=== PATIENT | female | born 1940 | race Caucasian/White ===

== ENCOUNTER 2020-06-29 19:40 | Emergency (ER) | payer MEDICARE, BC ==
[~2020-06-29] VITALS: Ht 165.1 cm; Wt 58.9 kg
--- NOTE | 2020-06-29 21:21 | RAD ---
CT Head W/O Contrast: History: Reason: FALL, HIT RIGHT CHEEK BONE / Spl. Instructions: / History: Comparison: none Axial images were obtained without contrast. There is moderate diffuse atrophy. There is no mass effect, extraaxial fluid collections or hydrocephalus. There is no focal loss of miller-white matter distinction to suggest acute ischemia, i.e. stroke. Impression: No acute findings. End impression CT maxillofacial without contrast History: Pain status post fall Axial helical images of the face were obtained without contrast. Axial, sagittal and coronal reconstruction was performed. The nasal septum is mostly midline. The ostiomeatal complexes are narrow but patent. The paranasal sinuses are clear. The visualized osseous structures appear intact. The orbits appear normal. Impression: No acute findings. End impression CT C-Spine without contrast: Clinical History: Reason: FALL, HIT RIGHT CHEEK BONE / Spl. Instructions: / History: Technique: Axial helical images of the cervical spine were obtained without contrast, axial coronal and sagittal reconstruction was performed. Findings: There is no loss of vertebral body stature. There is no prevertebral soft tissue swelling. The vertebral bodies are well aligned. The C1-C2 relationship is normal. The visualized osseous structures appear normal. Evaluation of the central canal is limited without contrast. There is multiple posterior disc bulges resulting in flattening of the thecal sac. There does not appear to be gross flattening of the cervical cord. There is moderate narrowing of multiple neuroforamen. Pleural thickening in the apices is likely chronic. Impression: No acute findings. Clinical correlation suggested. End impression PQRS Compliance Statement: One or more of the following individualized dose reduction techniques were utilized for this examination: 1. Automated exposure control 2. Adjustment of the mA and/or kV according to patient size 3. Use of iterative reconstruction technique Electronically signed by: Jv Key III, MD (06/29/2020 9:19 PM) [facility]
--- NOTE | 2020-06-29 21:54 | PHYS DOC ---
Past History Past Medical History: GERD, High Cholesterol, Hypertension, Hypothyroid, IBS Past Surgical History: Hysterectomy, Knee Replacement Additional Past Surgical Histo: rotator cuff, back surgery, tumer removal on neck Alcohol Use: None Adult General Chief Complaint Chief Complaint: MECHANICAL FALL HPI HPI Patient is a 79-year-old female who presents for fall. Onset was shortly prior to arrival. Patient was at daughter's house and suffered mechanical fall after tripping over a household stepstool. Patient fell striking her left anterior maldonado and subsequently hit her right cheekbone on cement floor. This fall was witnessed, no loss of consciousness reported, patient able to ambulate afterwards without difficulties but given extent of fall and concern for potential bony abnormalities, patient was transported to our facility by family for evaluation. Associated symptoms include mild headache, mild neck pain, bruising over right cheekbone, and left anterior maldonado skin tear. Patient denies any focal neurologic abnormalities, changes in motor or sensory function, syncope, dizziness, vision changes, or gait instability past baseline. Her tetanus is up-to-date. She takes 81 mg aspirin daily Review of Systems Review of Systems Fourteen body systems of review of systems have been reviewed. See HPI for pertinent positives and negative responses, other oliver all other systems are negative, non-pertinent or non-contributory Physical Exam Physical Exam Constitutional: Pt is oriented to person, place, and time. Pt appears well- developed and well-nourished. HENT: Head: Normocephalic. Ecchymosis with small hematoma noted to right inferior orbit without involvement of patient's eye. No palpable abnormalities or step- offs appreciated Mouth/Throat: Oropharynx is clear and moist. No lacerations or abrasions to face or scalp OP clear, no blood, no malocclusion, dentition intact Nares clear, no nasal septal hematoma TMs clear, no hemotympanum Midface stable Eyes: Conjunctivae and EOM are normal. Pupils are equal, round, and reactive to light. Neck: C-spine midline nontender, no step-offs Cardiovascular: Normal rate, regular rhythm and normal heart sounds. Pulmonary/Chest: Effort normal and breath sounds normal. No respiratory distress. No wheezes. CTA bilaterally Abdominal: Soft. Bowel sounds are normal. Pt exhibits no distension. There is no tenderness. Musculoskeletal: No bony tenderness to extremities, no deformities, full ROM extremities Chest wall stable Pelvis stable and non-tender No vertebral TTP and spine without stepoffs Neurological: Pt is alert and oriented to person, place, and time. Moving all extremities willfully, able to wiggle all fingers and toes Alert and oriented x 3 Sensation grossly intact Skin: Skin is warm and dry. No abrasions, no lacerations. Approximately 4 cm skin tear involving epidermis only noted to left anterior maldonado Psychiatric: Behavior is appropriate for situation Nursing note and vitals reviewed. Current Patient Data Vital Signs Vital Signs Date Time Temp Pulse Resp B/P (MAP) Pulse Ox O2 Delivery O2 Flow Rate FiO2 06/29/20 19:40 98.4 73 16 157/77 (103) 95 Room Air EKG EKG [] Radiology/Procedures Radiology/Procedures PROCEDURE: CT MAXILLOFACIAL WO CONTRAST CT Head W/O Contrast: History: Reason: FALL, HIT RIGHT CHEEK BONE / Spl. Instructions: / History: Comparison: none Axial images were obtained without contrast. There is moderate diffuse atrophy. There is no mass effect, extraaxial fluid collections or hydrocephalus. There is no focal loss of miller-white matter distinction to suggest acute ischemia, i.e. stroke. Impression: No acute findings. End impression CT maxillofacial without contrast History: Pain status post fall Axial helical images of the face were obtained without contrast. Axial, sagittal and coronal reconstruction was performed. The nasal septum is mostly midline. The ostiomeatal complexes are narrow but patent. The paranasal sinuses are clear. The visualized osseous structures appear intact. The orbits appear normal. Impression: No acute findings. End impression CT C-Spine without contrast: Clinical History: Reason: FALL, HIT RIGHT CHEEK BONE / Spl. Instructions: / History: Technique: Axial helical images of the cervical spine were obtained without contrast, axial coronal and sagittal reconstruction was performed. Findings: There is no loss of vertebral body stature. There is no prevertebral soft tissue swelling. The vertebral bodies are well aligned. The C1-C2 relationship is normal. The visualized osseous structures appear normal. Evaluation of the central canal is limited without contrast. There is multiple posterior disc bulges resulting in flattening of the thecal sac. There does not appear to be gross flattening of the cervical cord. There is moderate narrowing of multiple neuroforamen. Pleural thickening in the apices is likely chronic. Impression: No acute findings. Clinical correlation suggested. End impression PQRS Compliance Statement: One or more of the following individualized dose reduction techniques were utilized for this examination: 1. Automated exposure control 2. Adjustment of the mA and/or kV according to patient size 3. Use of iterative reconstruction technique Electronically signed by: Jv Key III, MD (06/29/2020 9:19 PM) [facility] Course & Med Decision Making Course & Med Decision Making Patient seen on immediate ER arrival ABCs non-concerning Comprehensive history and physical exam obtained Given mechanism of injury and patient being on 81 mg of aspirin, joint decision to pursue diagnostic imaging to ensure no intracranial or other bony abnormalities, these studies were subsequently negative Reviewed ER visit and diagnostic work-up that was grossly non-concerning, discussed this may be an acute presentation of more concerning pathology, patient understood this Joint decision to discharge home in stable condition with good family support and neurologic monitoring over upcoming 24 to 48 hours with PCP follow-up in upcoming 3 to 5 days Strict return precautions were discussed with good understanding, all questions and concerns addressed prior to ER departure in stable condition Dragon Disclaimer Dragon Disclaimer This electronic medical record was generated, in whole or in part, using a voice recognition dictation system. Departure Departure: Impression: Primary Impression: Fall Additional Impression: Closed head injury Disposition: HOME/RESIDENCE PRIOR TO ADM Condition: STABLE Referrals: FABIANO MALDONADO MD (PCP) Patient Instructions: Contusion, Head Injury, Adult Additional Instructions: As discussed prior to ER departure, please call your primary care physician on Tuesday to schedule ER visit follow-up in upcoming 3 to 10 days time Please review attached materials regarding supportive care for your head con tusion If any concerning signs or symptoms present prior to seeing primary care physician in outpatient setting, please call your PCP or he present to our ER for formal evaluation It was a pleasure to take care of you and I hope you have a speedy recovery! Justification of Admission: Justification of Admission: Justification of Admission Dx: N/A Problem Qualifiers ALETHEA PEARSON DO Jun 29, 2020 21:54
[2020-06-29] MEDS ORDERED: BACITRACIN ZINC TOPICAL OINT PACKET. TP ONE (22:15)
[2020-06-29 22:30] VITALS: BP 138/71
== END 2020-06-29 22:20 | disposition home or self-care (01) ==
LOC: ER 19:40
DX: S81.812A Laceration without foreign body, left lower leg, initial encounter (principal); S05.11XA Contusion of eyeball and orbital tissues, right eye, initial encounter; R51 Headache; M54.2 Cervicalgia; K21.9 Gastro-esophageal reflux disease without esophagitis; E78.00 Pure hypercholesterolemia, unspecified; I10 Essential (primary) hypertension; E03.9 Hypothyroidism, unspecified; K58.9 Irritable bowel syndrome, unspecified; W18.09XA Striking against other object with subsequent fall, initial encounter; Y93.89 Activity, other specified; Y92.89 Other specified places as the place of occurrence of the external cause; Y99.8 Other external cause status
CPT/HCPCS: 70450; 70486; 72125; 99285

== ENCOUNTER → 2021-01-20 | Outpatient (CLI) | payer MEDICARE, BC ==
--- NOTE | 2021-01-20 15:01 | CARD ---
MR#: [id number] Date of Study: 01/20/2021 Ordering Physician: CASSANDRA BOLES, Referring Physician: CASSANDRA BOLES, Tech: Kelly Goldsmith [place] APPROVED REPORT EXAM: Two-dimensional and M-mode echocardiogram with Doppler and color Doppler. Other Information Quality : Good INDICATION CVA/TIA RISK FACTORS Hypertension 2D DIMENSIONS RVDd3.0 (2.9-3.5cm)Left Atrium(2D)3.0 (1.6-4.0cm) IVSd1.0 (0.7-1.1cm)Aortic Root(2D)2.5 (2.0-3.7cm) LVDd3.7 (3.9-5.9cm)LVOT Diameter1.9 (1.8-2.4cm) PWd1.0 (0.7-1.1cm)LVDs2.0 (2.5-4.0cm) FS (%) 45.4 %SV45.6 ml LVEF(%)60.0 (>50%) Aortic Valve AoV Peak Roger.122.2cm/sAoV VTI27.6cm AO Peak GR.6.0mmHgLVOT Peak Roger.88.9cm/s LVOT VTI 21.82cmAO Mean GR.3mmHg LELO (VMAX)2.37rj2FBS (VTI)2.35cm2 AI P 1/2 Xldt960pr Mitral Valve MV E Qivweuds53.6cm/sMV DECEL YYEP757se MV A Lexpscun61.3cm/sE/A Ratio1.1 Tricuspid Valve TR P. Ayhbgjbk546oo/sRAP VOTSBHOG6iaEl TR Peak Gr.76usBkRCZU95fsWx Pulmonary Vein S1 Rmgvezpu72.3cm/sD2 Atplgmda10.7cm/s LEFT VENTRICLE The left ventricle is normal size. There is normal left ventricular wall thickness. The left ventricu lar systolic function is normal and the ejection fraction is within normal range. The Ejection Fracti on is 55-60%. There is normal LV segmental wall motion. Transmitral Doppler flow pattern is Grade II- pseudonormal filling dynamics. RIGHT VENTRICLE The right ventricle is normal size. The right ventricular systolic function is normal. ATRIA The left atrium size is normal. The right atrium size is normal. The interatrial septum is intact wit h no evidence for an atrial septal defect or patent foramen ovale as noted on 2-D or Doppler imaging. AORTIC VALVE The aortic valve is calcified but opens well. Doppler and Color Flow revealed mild aortic regurgitati on. There is no significant aortic valvular stenosis. MITRAL VALVE The mitral valve is normal in structure and function. There is no evidence of mitral valve prolapse. There is no mitral valve stenosis. Doppler and Color-flow revealed mild mitral regurgitation. TRICUSPID VALVE The tricuspid valve is normal in structure and function. Doppler and Color Flow revealed mild tricusp id regurgitation. There is mild pulmonary hypertension. The PA pressure was estimated at 33 mmHg. The re is no tricuspid valve stenosis. PULMONIC VALVE The pulmonic valve is not well visualized. Doppler and Color Flow revealed mild pulmonic valvular reg urgitation. There is no pulmonic valvular stenosis. GREAT VESSELS The aortic root is normal in size. The ascending aorta is normal in size. The IVC is normal in size a nd collapses >50% with inspiration. PERICARDIAL EFFUSION There is no evidence of significant pericardial effusion. Critical Notification Critical Value: No <Conclusion> The left ventricular systolic function is normal and the ejection fraction is within normal range. Th e Ejection Fraction is 55-60%. There is normal LV segmental wall motion. Doppler and Color Flow revealed mild aortic regurgitation. Signed by : Cassandra Boles, Electronically Approved : 01/20/2021 15:01:15
== END ==
LOC: ECHO 10:56
PROVIDERS: ATTEND Internal Medicine Cardiovascular Disease
DX: I08.8 Other rheumatic multiple valve diseases (principal); G45.9 Transient cerebral ischemic attack, unspecified
CPT/HCPCS: 93306

== ENCOUNTER → 2021-04-25 | Outpatient (CLI) | payer MEDICARE, BC ==
[2021-04-25 08:47] LABS: BASO % 1 % (0-3); EOS # 0.2 x10^3/uL (0.0-0.7); EOS % 4 % (0-3); HEMATOCRIT 38.2 % (36.0-47.0); LYMPH # 2.4 x10^3/uL (1.0-4.8); LYMPH % 39 % (24-48); MEAN CORPUSCULAR HEMOGLOBIN 33 pg (25-35); MEAN CORPUSCULAR HGB CONC 34 g/dL (31-37); MEAN CORPUSCULAR VOLUME 97 fL (79-100); MONO # 0.6 x10^3/uL (0.0-1.1); MONO % 10 % (0-9); NEUT # 2.9 x10^3uL (1.8-7.7); NEUT % 47 % (31-73); PLATELET COUNT 246 x10^3/uL (140-400); RED BLOOD COUNT 3.96 x10^6/uL (3.50-5.40); RED CELL DISTRIBUTION WIDTH 12.8 % (11.5-14.5); WHITE BLOOD COUNT 6.1 x10^3/uL (4.0-11.0)
[2021-04-25 09:13] LABS: ALBUMIN 3.3 g/dL (3.4-5.0); C REACTIVE PROTEIN 11.4 mg/L (0-3.3); CALCIUM 8.5 mg/dL (8.5-10.1); CREATININE 1.3 mg/dL (0.6-1.0); GFR 39.2; POTASSIUM 3.7 mmol/L (3.5-5.1); TOTAL BILIRUBIN 0.4 mg/dL (0.2-1.0); TOTAL PROTEIN 6.6 g/dL (6.4-8.2)
--- NOTE | 2021-04-25 13:14 | RAD ---
EXAMINATION: CT HEAD/BRAIN WO (CT HEAD WITHOUT IV CONTRAST) CLINICAL HISTORY: ISCHEMIC ATTACK Instructions: Dr. Lima will call pt with results per patient / History: TECHNIQUE: Serial axial images without IV contrast were obtained from the vertex to the foramen magnu m. CT Dose Reduction Employed: One or more of the following individualized dose reduction techniques wer e utilized for this examination: 1. Automated exposure control 2. Adjustment of the mA and/or kV ac cording to patient size 3. Use of iterative reconstruction technique. COMPARISON: 06/29/2020 FINDINGS: Acute Change: No evidence of an acute infarct or other acute parenchymal process. Hemorrhage: No evidence of acute intracranial hemorrhage. Mass Lesion/Mass Effect: No evidence of intracranial mass or extraaxial fluid collection. No signific ant mass effect. Chronic Change: Scattered patchy foci of hypoattenuation in the supratentorial white matter, nonspeci fic but likely represents mild microvascular ischemia. Atherosclerotic calcification of the anterior and posterior circulation. Parenchyma: Mild generalized volume loss. Ventricles: Ventricular enlargement concordant with degree of parenchymal volume loss. Paranasal Sinuses and Skull Base: Visualized paranasal sinuses clear. Visualized skull base and soft tissues unremarkable. IMPRESSION: No evidence of acute intracranial abnormality or significant interval change. Electronically signed by: Denzel Wells DO (04/25/2021 1:12 PM) [facility]
== END ==
LOC: LAB 07:35
PROVIDERS: ATTEND Family Medicine
DX: G45.9 Transient cerebral ischemic attack, unspecified (principal); I11.9 Hypertensive heart disease without heart failure; M62.81 Muscle weakness (generalized); H93.13 Tinnitus, bilateral; K58.0 Irritable bowel syndrome with diarrhea
CPT/HCPCS: 36415; 70450; 80053; 84443; 85025; 86140